=== PATIENT | male | born 1985 | race Caucasian/White ===

== ENCOUNTER 2020-02-27 17:00 | Outpatient (REF) | payer MEDICAID, SELFPAY | END 2020-02-27 17:01 | disposition home or self-care (01) | LOC: HO.LAB 17:00 | PROVIDERS: Visit Provider Internal Medicine | DX: Z20.828 Contact with and (suspected) exposure to other viral communicable diseases (principal) | CPT/HCPCS: C9803; U0003 ==

== ENCOUNTER 2020-04-23 15:47 | Outpatient (REF) | payer MEDICAID, SELFPAY | END 2020-04-23 15:48 | disposition home or self-care (01) | LOC: HO.LAB 15:47 | PROVIDERS: Visit Provider Internal Medicine | DX: Z20.822 Contact with and (suspected) exposure to COVID-19 (principal) | CPT/HCPCS: 36415; C9803; U0003; U0005 ==

== ENCOUNTER 2020-04-23 16:03 | Emergency (ER) | payer MEDICAID, SELFPAY ==
--- NOTE | ~2020-04-23 | XR_ITS ---
EXAMINATION: XR wrist RT min 3V, XR shoulder RT min 2V, XR elbow RT min 3V CLINICAL INFORMATION: Pain COMPARISON: None. TECHNIQUE: Right shoulder 4 views. Right elbow 3 views. Right wrist 4 views. FINDINGS: Right shoulder is intact. No fracture or dislocation. Visualized right lung and ribs are normal. No abnormal calcifications. The right elbow is normal. No fracture, dislocation, or joint effusion. The right wrist is normal. No fracture. No dislocation. Intercarpal joint spaces are maintained. Normal mineralization and alignment. No radiopaque foreign body. XR/XR shoulder RT min 2V IMPRESSION: No acute osseous abnormality of the right shoulder, elbow, or wrist.
--- NOTE | ~2020-04-23 | XR_ITS ---
EXAMINATION: XR wrist RT min 3V, XR shoulder RT min 2V, XR elbow RT min 3V CLINICAL INFORMATION: Pain COMPARISON: None. TECHNIQUE: Right shoulder 4 views. Right elbow 3 views. Right wrist 4 views. FINDINGS: Right shoulder is intact. No fracture or dislocation. Visualized right lung and ribs are normal. No abnormal calcifications. The right elbow is normal. No fracture, dislocation, or joint effusion. The right wrist is normal. No fracture. No dislocation. Intercarpal joint spaces are maintained. Normal mineralization and alignment. No radiopaque foreign body. XR/XR wrist RT min 3V IMPRESSION: No acute osseous abnormality of the right shoulder, elbow, or wrist.
--- NOTE | ~2020-04-23 | XR_ITS ---
EXAMINATION: XR KNEE, LEFT CLINICAL INFORMATION: Pain COMPARISON: None TECHNIQUE: Four views of the left knee. FINDINGS: No fracture or dislocation. There is suprapatellar soft tissue density. There is enthesopathy of the distal quadriceps tendon attachment. XR/XR knee LT 3V IMPRESSION: No acute osseous abnormality of the left knee. There is suprapatellar soft tissue density which may represent a small joint effusion or overlying soft tissues.
--- NOTE | ~2020-04-23 | XR_ITS ---
EXAMINATION: XR wrist RT min 3V, XR shoulder RT min 2V, XR elbow RT min 3V CLINICAL INFORMATION: Pain COMPARISON: None. TECHNIQUE: Right shoulder 4 views. Right elbow 3 views. Right wrist 4 views. FINDINGS: Right shoulder is intact. No fracture or dislocation. Visualized right lung and ribs are normal. No abnormal calcifications. The right elbow is normal. No fracture, dislocation, or joint effusion. The right wrist is normal. No fracture. No dislocation. Intercarpal joint spaces are maintained. Normal mineralization and alignment. No radiopaque foreign body. XR/XR elbow RT min 3V IMPRESSION: No acute osseous abnormality of the right shoulder, elbow, or wrist.
[2020-04-23 16:28] VITALS: BP 144/66; PULSE 79; RESP 16; TEMP 36.7; O2SAT 97; BMI 19.1
--- NOTE | 2020-04-23 19:27 | ED.EXTPRO ---
HPI - Extremity Problem General Chief complaint: Extremity Problem Stated complaint: Arm and leg pain Time Seen by Provider: 04/23/20 16:15 Source: patient Mode of arrival: ambulatory Limitations: no limitations History of Present Illness HPI Narrative: Patient comes to emergency room complaining of right-sided shoulder pain, elbow pain, and wrist pain. Patient states he feels a shooting pain going from the neck towards his arm. It has been going over a week. Patient denies any injury. Patient also requesting a note for work, he was sent from work to be tested for COVID-19 which he did, it is a work excuse for the next 3 days. Patient was told that he cannot return to work until his COVID results resolved. Related Data Allergies Allergy/AdvReac Type Severity Reaction Status Date / Time No Known Allergies Allergy Verified 04/23/20 16:33 Review of Systems Review of Systems: Constitutional : No Weight loss, No Fever, No Chills, No Night Sweats, No Fatigue, No Malaise ENT/Mouth : No Hearing loss, No Ear Pain, No Nasal Congestion, No Sinus Pain, No Hoarseness, No sore throat, No Rhinorrhea, No Swallowing Difficulty Eyes: No Eye Pain, No Swelling, No Redness, No Foreign Body, No Discharge, No Vision Changes Cardiovascular : No Chest Pain, No SOB, No Dyspnea on Exertion, No Orthopnea, No Edema, No Palpitations Respiratory : No Cough, No Sputum, No Wheezing, No Smoke Exposure, No Dyspnea Gastrointestinal : No Nausea, No Vomiting, No Diarrhea, No Constipation, No abdominal Pain, No Hematochezia, No Melena Genitourinary : no irregular bleeding, No Dysuria, No Urinary Frequency, No Hematuria, No Urinary Incontinence, No Urgency, No Flank Pain, No Urinary Flow Changes, No Hesitancy Musculoskeletal : Complaining of right-sided arm pain shoulder to wrist Skin : No Skin Lesions, No rash Neuro : No Weakness, No Numbness, No Paresthesias, No Loss of Consciousness, No Dizziness, No Headache Psych : No Anxiety/Panic, No Depression, No SI/HI/AH/VH, No Social Issues, Heme/Lymph: No Bruising, No Bleeding,No Lymphadenopathy Endocrine : No Polyuria, No Polydipsia, No Temperature Intolerance PMFSH Past Medical History Medical History No known health problems Social History Social History Alcohol intake: never Smoking Status: Current every day smoker Use of substances other than those prescribed or required for medical reasons: No Any prior treatment program specific to substance use: No Advance Directives: No Advance Directives Information Provided: Yes Physical Exam Vital Signs: Vital Signs: Last Vital Signs Temp 98.1 F 04/23/20 16:28 Pulse 79 04/23/20 16:28 Resp 16 04/23/20 16:28 BP 144/66 H 04/23/20 16:28 Pulse Ox 97 04/23/20 16:28 Body Mass Index 19.1 Appearance: Alert. Oriented X3. No acute distress. Eyes: Pupils equal, round and reactive to light. ENT: Pharynx normal. Neck: Normal inspection. Neck supple. No lymph nodes noted. No crepitus CVS: Normal heart rate and rhythm. Pulses normal. Normal S1 and S2 Respiratory: No respiratory distress. Breath sounds normal. No Wheezing. No rales Abdomen: Soft and nontender. No rigidity. No distention. good BS x4 Skin: Skin warm and dry. Normal skin color. Normal skin turgor. Extremities: No lower extremity edema. Patient is able to flex extend both arms, patient is able to abduct and adduct arms bilaterally. No joint swelling, no erythema Neuro: Oriented X 3. No motor deficit. No sensory deficit. Moving all extermities. No slurred speech. Course Course Course Narrative: I discussed with the patient that he may have cervical radiculopathy. His x-rays are negative. Patient struck to follow up with his primary care physician. MDM - Extremity (Nontraumatic) Imaging Data Right shoulder, elbow, wrist x-ray: Radiologist's impression: Right shoulder is intact. No fracture or dislocation. Visualized right lung and ribs are normal. No abnormal calcifications. The right elbow is normal. No fracture, dislocation, or joint effusion. The right wrist is normal. No fracture. No dislocation. Intercarpal joint spaces are maintained. Normal mineralization and alignment. No radiopaque foreign body. XR/XR wrist RT min 3V IMPRESSION: No acute osseous abnormality of the right shoulder, elbow, or wrist. Discharge Plan Discharge Clinical Impression: Arm pain, right, Cervical radiculopathy Patient Disposition: Home, Self-Care Instructions: Arm Pain (ED) Additional Instructions: You were tested for COVID-19, please do not return to work until you have your results. Please follow-up with your primary care physician tomorrow. If you have any worsening or new symptoms, please return to the emergency room or call 911 Stand Alone Forms: Work/School Release
== END 2020-04-23 19:41 | disposition home or self-care (01) ==
PROVIDERS: Emergency Provider Emergency Medicine; PCP Internal Medicine
DX: M79.601 Pain in right arm (principal); M54.12 Radiculopathy, cervical region; F17.200 Nicotine dependence, unspecified, uncomplicated
CPT/HCPCS: 73030; 73080; 73110; 73562; 99283; 99284

== ENCOUNTER 2020-05-01 14:18 | Emergency (ER) | payer MEDICAID, SELFPAY ==
--- NOTE | ~2020-05-01 | XR_ITS ---
EXAMINATION: XR CHEST CLINICAL INFORMATION: Cough. COMPARISON: None TECHNIQUE: Frontal view of the chest was obtained. FINDINGS: No significant abnormality is noted involving the heart, lungs, mediastinum, bony thorax or soft tissues. XR/XR chest 1V IMPRESSION: No acute cardiopulmonary process.
[2020-05-01 14:37] VITALS: BP 122/73; PULSE 80; RESP 18; TEMP 37.1; O2SAT 99; BMI 26.6
--- NOTE | 2020-05-01 15:36 | ED_ITS ---
HPI - General Adult General Chief complaint: General Medical Stated complaint: covid symptoms Time Seen by Provider: 05/01/20 15:12 Source: patient Mode of arrival: ambulatory History of Present Illness HPI narrative: 34-year-old male with no significant past medical history presenting to the ED complaining of dry cough, nasal congestion, headache, myalgias, and subjective fever x3 days. Admits to sick family member. Denies chest pain/shortness of breath, LE edema Onset (ago): day(s) Related Data Previous Rx's Medication Instructions Recorded albuterol sulfate 2 puff INHALATION Q4-6H PRN #6.7 g 05/01/20 Allergies Allergy/AdvReac Type Severity Reaction Status Date / Time No Known Allergies Allergy Verified 04/23/20 16:33 Review of Systems Review of Systems: Constitutional: No Weight loss, +Subj Fever, +Chills ENT/Mouth: No Ear Pain, + Nasal Congestion, No Sinus Pain, No Hoarseness, No sore throat, + Rhinorrhea, No Swallowing Difficulty Cardiovascular: No Chest Pain, No SOB Respiratory: +Cough, No Sputum, No Wheezing Gastrointestinal: No Nausea, No Vomiting, No Abdominal pain Musculoskeletal: No joint pain, + Myalgias, No Joint Swelling Skin: No Skin Lesions, No rash Yes all other systems are reviewed and are negative PMFSH Past Medical History Attestation statement: The following information was validated with the patient. Medical History No known health problems Social History Social History Alcohol intake: never Smoking Status: Current every day smoker Advance Directives: No Advance Directives Information Provided: No Physical Exam Vital Signs: Vital Signs: Last Vital Signs Temp 98.7 F 05/01/20 14:37 Pulse 80 05/01/20 14:37 Resp 18 05/01/20 14:37 BP 122/73 05/01/20 14:37 Pulse Ox 99 05/01/20 14:37 Body Mass Index 26.6 Const: General: cooperative and healthy appearing Orientation/consciousness: patient oriented x3 Limitations: no limitations HENMT: Head: Yes normal to inspection Ears: hearing grossly normal bilaterally General nose exam: Normal external nose present Face and sinus: Yes normal facial exam Eyes: General: appearance normal, both eyes and all related structures EOM: EOMs intact bilaterally Neck: Neck: Yes normal visual inspection Resp: Effort & Inspection: normal respiratory effort Auscultation: clear to auscultation bilaterally, no rales, no rhonchi and no wheezes Cardio: Rate: regular rate Heart sounds: S1 normal heart sound present and S2 normal heart sound present GI: Inspection: Yes normal to inspection Skin: Rashes: no rashes Wounds: no wounds Neuro: General: patient oriented x3 Gait exam (Neuro): Normal gait present Extrem: General: Yes normal to inspection and Yes no pedal edema Course Course Course Narrative: -CXR unremarkable. Patient is COVID-19 positive Medical Decision Making MDM Narrative Medical decision making narrative: 34-year-old male with no significant past medical history presenting to the ED complaining of dry cough, nasal congestion, headache, myalgias, and subjective fever x3 days. On exam VSS, NAD/well- appearing, nontoxic, lungs CTA. Concern for viral syndrome/COVID-19. Low concern for pneumonia/PE/ACS Plan: CXR, COVID-19 testing Lab Data Labs: Lab Results 05/01/20 Range/Units 14:51 Coronavirus (PCR) POSITIVE A (Negative) Influenza Type A (PCR) NEGATIVE (Negative) Influenza Type B (PCR) NEGATIVE (Negative) RSV RNA Qual (PCR) NEGATIVE (Negative) Discharge Plan Discharge Clinical Impression: COVID-19 Patient Disposition: Home, Self-Care Instructions: Viral Syndrome (ED) Additional Instructions: You have COVID-19. You need to self isolate for 10 days from today. Continue to take Tylenol Motrin at home for fever/body aches. Make sure your staying hydrated If you develop constant worsening chest pain, or shortness of breath return to the ED Use albuterol inhaler at home as needed for shortness of breath/wheezing CDC Guidelines for home isolation: - Stay away from others - WEAR A MASK if you are sick AND STAY HOME - Cover your mouth and nose with a tissue when you cough or sneeze. Dispose of tissues in a lined trash can and wash your hands immediately with soap and water for at least 20 seconds. If soap and water are not available, clean hands with alcohol-based hand service order expediter that contains at least 60% alcohol. - Clean your hands often with soap and water for at least 20 seconds - Avoid touching your eyes, nose and mouth with unwashed hands - Do not share dishes, drinking glasses, cups, eating utensils, towels, or bedding with other people in your home. After using these items, wash them thoroughly with soap and water or put in the supervisor specialty plant. - Clean high-touch surfaces in your isolation area ( sick room and bathroom) every day; let a caregiver clean and disinfect high-touch surfaces in other areas of the home. Clean the area or item with soap and water or another detergent if it is dirty. Then, use a household disinfectant. - Limit contact with pets and animals: If you must care for a pet, wash your hands before and after interacting with them) Prescriptions: New albuterol sulfate 90 mcg/actuation HFA aerosol inhaler 2 puff inhalation Q4-6H PRN (Reason: shortness of breath or wheezing) Qty: 6.7 RF: 0 Referrals: Physician,None [Primary Care Provider] - 2 days Stand Alone Forms: Work/School Release
[2020-05-01 15:39] LABS: Influenza A PCR NEGATIVE (Negative); Influenza B PCR NEGATIVE (Negative); Resp Syncy Virus RNA Qual PCR NEGATIVE (Negative); SARS COV2 PCR INHOUSE POSITIVE (Negative)
== END 2020-05-01 16:03 | disposition home or self-care (01) ==
PROVIDERS: Physician Assistant; Emergency Provider Emergency Medicine
DX: U07.1 COVID-19 (principal)
CPT/HCPCS: 0241U; 36415; 71045; 99282; 99283

== ENCOUNTER 2021-02-18 07:54 | Emergency (ER) | payer MEDICAID, SELFPAY ==
[2021-02-18 08:13] VITALS: BP 123/80; PULSE 78; RESP 18; O2SAT 98; BMI 19.5
--- NOTE | 2021-02-18 08:25 | ED_ITS ---
HPI - Nausea/Vomiting/Diarrhea General Chief complaint: Nausea/Vomiting/Diarrhea Stated complaint: Vomiting Time Seen by Provider: 02/18/21 08:16 Source: patient Mode of arrival: ambulatory Limitations: no limitations History of Present Illness MD elicited complaint: nausea and vomiting Pertinent past history: other (ate a burger out of vending machine vomited 30 min later) Onset (ago): hour(s) (several) Description of vomiting: food contents and watery Associated nausea: Yes Associated abdominal pain: No Location of pain: none Exacerbating factors: eating Relieving factors: none Context: possible food poisoning Associated symptoms: loss of appetite, malaise and nausea/vomiting Related Data Previous Rx's Medication Instructions Recorded albuterol sulfate 90 mcg/actuation 2 puff INHALATION Q4-6H PRN #6.7 g 05/01/20 aerosol inhaler ondansetron 4 mg disintegrating 4 mg PO Q8H PRN #20 tab 02/18/21 tablet Allergies Allergy/AdvReac Type Severity Reaction Status Date / Time No Known Allergies Allergy Verified 04/23/20 16:33 Review of Systems Review of Systems: Constitutional : No Weight loss, No Fever, No Chills ENT/Mouth : No sore throat, No Rhinorrhea Eyes: No Swelling, No Redness Cardiovascular : No Chest Pain, No SOB, NoEdema Respiratory : No Cough, No Sputum, No Wheezing Gastrointestinal : Positive Nausea, Positive Vomiting, no Diarrhea, no abdominal Pain, No Hematochezia, No Melena Genitourinary : No Dysuria, No Urinary Frequency, No Hematuria, No Urgency Musculoskeletal : No joint pain, No Myalgias, No Joint Swelling Skin : No Skin Lesions, No rash Neuro : No Weakness, No Numbness, No Dizziness, No Headache Psych : No Anxiety/Panic, No Depression Heme/Lymph: No Bruising, No Lymphadenopathy Endocrine : No Polyuria, No Polydipsia All other systems reviewed and are negative. Gastrointestinal: Gastrointestinal: Reports nausea PMFSH Past Medical History Attestation statement: The following information was validated with the patient. Medical History No known health problems Social History Social History Alcohol intake: never Patient Tobacco Use Status: Never used Tobacco Advance Directives: No Advance Directives Information Provided: No Physical Exam Vital Signs: Vital Signs: Last Vital Signs Pulse 78 02/18/21 08:13 Resp 18 02/18/21 08:13 BP 123/80 02/18/21 08:13 Pulse Ox 98 02/18/21 08:13 BMI result Body Mass Index 19.5 Appearance: Alert. Oriented X3. No acute distress. Eyes: Pupils equal, round and reactive to light. ENT: Pharynx normal. Neck: Normal inspection. Neck supple. CVS: Normal heart rate and rhythm. Pulses normal. Respiratory: No respiratory distress. Breath sounds normal. Abdomen: Soft and non-tender. Skin: Skin warm and dry. Normal skin color. Normal skin turgor. Extremities: No lower extremity edema. No calf ttp Neuro: Oriented X 3. No motor deficit. No sensory deficit. Course Course Course Narrative: feels better able to tolerate PO can be DC home MDM - Nausea/Vomiting/Diarrhea MDM Narrative Medical decision making narrative: 35 yo male no sig PMH here with c/o vomiting abruptly after eating a burger from vending machine while at work - he has no abdominal pain and exam is benign. At this time will need labs, hydration, nausea medication - dispo per results and findings suspect food toxicity Lab Data Result diagrams: 02/18/21 08:38 02/18/21 08:38 Labs: Lab Results 02/18/21 02/18/21 02/18/21 Range/Units 08:38 08:38 08:38 WBC 6.5 (4.8-10.8) X10*3/uL RBC 4.47 L (4.60-5.80) X10*6/uL Hgb 13.9 L (14.0-18.0) g/dl Hct 40.2 L (42.0-52.0) % MCV 89.9 (80.0-98.0) fL MCH 31.1 (27.0-33.0) pg MCHC 34.6 (31.0-36.0) g/dl RDW 12.5 (11.0-16.0) % Plt Count 218 (160-400) X10*3/uL MPV 10.6 (9.4-12.4) fL Immature Gran % (Auto) 0.6 H (0.0-0.4) % Neut % (Auto) 48.0 (45-73) % Lymph % (Auto) 34.2 (20-40) % [place] % (Auto) 13.6 H (2-11) % Eos % (Auto) 2.5 (0-4) % Baso % (Auto) 1.1 (0-2) % Lymph # (Auto) 2.2 (1.2-4.9) X10*3/uL [place] # (Auto) 0.9 (0.1-1.2) X10*3/uL Eos # (Auto) 0.2 (0.0-0.4) X10*3/uL Baso # (Auto) 0.1 (0.0-0.2) X10*3/uL Abs Immat Gran (auto) 0.04 H (0.00-0.03) X10*3/uL Absolute Neuts (auto) 3.1 (2.0-8.3) x10*3/uL Absolute Nucleated RBC 0.000 (0.0-0.012) X10*3/uL Nucleated RBC % (auto) 0.0 (0.0-0.2) /100WBC Sodium 139 (135-145) mmol/L Potassium 4.2 (3.3-5.1) mmol/L Chloride 106 (96-108) mmol/L Carbon Dioxide 27 (22-29) mmol/L Anion Gap 10 L (12-20) BUN 11 (9-16) mg/dL Creatinine 1.10 (0.5-1.4) mg/dL Estim Creat Clear Calc 85.7 Estimated GFR > 60 Random Glucose 100 (60-115) mg/dL Calcium 9.1 (8.4-10.2) mg/dL Magnesium 2.3 (1.6-2.6) mg/dL Total Bilirubin 0.4 (0.0-1.0) mg/dL Direct Bilirubin 0.2 (0.0-0.5) mg/dL AST 13 (5-37) U/L ALT 10 (0-40) U/L Alkaline Phosphatase 77 (39-117) U/L Total Protein 6.2 L (6.5-8.0) g/dL Albumin 4.0 (3.5-5.0) g/dL Lipase 49 (8-78) U/L COVID-19 ([facility]) Negative (Negative) COVID-19 Clin Com See Note Discharge Plan Discharge Clinical Impression: Food poisoning Patient Disposition: Home, Self-Care Instructions: Clear Liquid Diet (ED), Food Poisoning (ED) Additional Instructions: return to ED for any worsening symptoms or concerns clear liquids for today Prescriptions: New ondansetron 4 mg tablet,disintegrating 4 mg PO Q8H PRN (Reason: nausea and vomiting) Qty: 20 RF: 0 No Action albuterol sulfate 90 mcg/actuation HFA aerosol inhaler 2 puff inhalation Q4-6H PRN (Reason: shortness of breath or wheezing) Qty: 6.7 RF: 0 Referrals: Dafne Mi MD [Primary Care Provider] - 2 days (if not better) Stand Alone Forms: Work/School Release
[2021-02-18] MEDS: 0.9 % Sodium Chloride 1,000 ML 999 ML IV (08:40)
[2021-02-18] MEDS: Ketorolac Tromethamine 15 MG/ML VIAL 30 MG IVPUSH (08:45)
[2021-02-18] MEDS: ondansetron HCL 4 MG/2 ML VIAL IVPUSH (08:46)
[2021-02-18 08:50] LABS: MANUAL DIFF FLAG NO
[2021-02-18 08:54] LABS: Basophils Absolute Auto 0.1 X10*3/uL (0.0-0.2); Basophils Percent Auto 1.1 % (0-2); Eosinophils Absolute Auto 0.2 X10*3/uL (0.0-0.4); Eosinophils Percent Auto 2.5 % (0-4); Hematocrit 40.2 % (42.0-52.0); Hemoglobin 13.9 g/dl (14.0-18.0); Imm Gran Abs Auto 0.04 X10*3/uL (0.00-0.03); Imm Gran Pct Auto 0.6 % (0.0-0.4); Lymphocytes Absolute Auto 2.2 X10*3/uL (1.2-4.9); Lymphocytes Percent Auto 34.2 % (20-40); Mean Corpuscular HGB Conc 34.6 g/dl (31.0-36.0); Mean Corpuscular Hemoglobin 31.1 pg (27.0-33.0); Mean Corpuscular Volume 89.9 fL (80.0-98.0); Mean Platelet Volume 10.6 fL (9.4-12.4); Monocytes Absolute Auto 0.9 X10*3/uL (0.1-1.2); Monocytes Percent Auto 13.6 % (2-11); Neutrophils Absolute Auto 3.1 x10*3/uL (2.0-8.3); Platelet Count 218 X10*3/uL (160-400); Red Blood Count 4.47 X10*6/uL (4.60-5.80); Red Cell Distribution Width 12.5 % (11.0-16.0); White Blood Count 6.5 X10*3/uL (4.8-10.8)
[2021-02-18 09:12] LABS: Alanine Aminotransferase 10 U/L (0-40); Alkaline Phosphatase 77 U/L (39-117); Anion Gap 10 (12-20); Aspartate Amino Transferase 13 U/L (5-37); Bilirubin Direct 0.2 mg/dL (0.0-0.5); Bilirubin Total 0.4 mg/dL (0.0-1.0); Blood Urea Nitrogen 11 mg/dL (9-16); Calcium 9.1 mg/dL (8.4-10.2); Carbon Dioxide 27 mmol/L (22-29); Chloride 106 mmol/L (96-108); Creatinine Clr Calc Pharmacy 85.7; Estimated Glomerular Filt Rate > 60; Glucose Random 100 mg/dL (60-115); Lipase 49 U/L (8-78); Magnesium 2.3 mg/dL (1.6-2.6); Potassium 4.2 mmol/L (3.3-5.1); Sodium 139 mmol/L (135-145); Total Protein 6.2 g/dL (6.5-8.0)
[2021-02-18 09:15] LABS: COVID-19 Test Negative (Negative); IDNOW Serial# 9DD0AD1C
== END 2021-02-18 10:44 | disposition home or self-care (01) ==
PROVIDERS: Emergency Provider Emergency Medicine; PCP Internal Medicine
DX: A05.9 Bacterial foodborne intoxication, unspecified (principal); Z20.822 Contact with and (suspected) exposure to COVID-19
CPT/HCPCS: 36415; 80048; 80076; 83690; 83735; 85025; 87635; 96361; 96374; 96375; 99284; J1885; J2405

== ENCOUNTER 2021-09-04 02:17 | Emergency (ER) | payer MEDICAID, SELFPAY ==
--- NOTE | ~2021-09-04 | XR_ITS ---
EXAMINATION: XR FOREARM, RIGHT CLINICAL INFORMATION: Pain. COMPARISON: Right wrist and right elbow radiographs 04/23/2020. TECHNIQUE: AP and lateral views of the right forearm were obtained. FINDINGS: The radial head appears intact. No fractures identified. Normal bone mineralization. No suspicious osseous lesions. Soft tissue prominence is present along the volar aspect of the middle segment of the right forearm. No soft tissue emphysematous changes. XR/XR forearm RT 2V IMPRESSION: *Focal soft tissue prominence along the volar aspect of the right forearm which may represent acute inflammatory changes. No fractures. No subcutaneous emphysema.
[2021-09-04 02:20] VITALS: BP 125/80; PULSE 97; RESP 16; TEMP 36.8; O2SAT 98
--- NOTE | 2021-09-04 02:55 | ED_ITS ---
HPI - Skin/Abscess/Foreign Bdy General Chief complaint: Skin/Abscess/Foreign Body Stated complaint: R arm inj ; broke window, glass in arm ? Time Seen by Provider: 09/04/21 02:51 Source: patient Mode of arrival: ambulatory Limitations: no limitations History of Present Illness HPI narrative: Patient comes emergency room complaining of an abscess in his right forearm. Five days ago, patient punched a car window, had a laceration, patient has been taking care of it at home. However, the arm developed an abscess, pain getting worse, no fever. Patient does not have any other injury. Patient denies IV drug use Related Data Previous Rx's Medication Instructions Recorded albuterol sulfate 90 mcg/actuation 2 puff inhalation Q4-6H PRN 05/01/20 aerosol inhaler shortness of breath or wheezing #6.7 grams ondansetron 4 mg disintegrating 4 mg PO Q8H PRN nausea and 02/18/21 tablet vomiting #20 tabs cephalexin 250 mg capsule 250 mg PO BID #14 caps 09/04/21 doxycycline hyclate 100 mg tablet 100 mg PO BID #14 tabs 09/04/21 tramadol 50 mg tablet 50 mg PO Q8H PRN pain #7 tabs 09/04/21 Allergies Allergy/AdvReac Type Severity Reaction Status Date / Time No Known Allergies Allergy Verified 04/23/20 16:33 Review of Systems Review of Systems: Constitutional : No Weight loss, No Fever, No Chills, No Night Sweats, No Fatigue, No Malaise ENT/Mouth : No Hearing loss, No Ear Pain, No Nasal Congestion, No Sinus Pain, No Hoarseness, No sore throat, No Rhinorrhea, No Swallowing Difficulty Eyes: No Eye Pain, No Swelling, No Redness, No Foreign Body, No Discharge, No Vision Changes Cardiovascular : No Chest Pain, No SOB, No Dyspnea on Exertion, No Orthopnea, No Edema, No Palpitations Respiratory : No Cough, No Sputum, No Wheezing, No Smoke Exposure, No Dyspnea Gastrointestinal : No Nausea, No Vomiting, No Diarrhea, No Constipation, No abdominal Pain, No Hematochezia, No Melena Genitourinary : no irregular bleeding, No Dysuria, No Urinary Frequency, No Hematuria, No Urinary Incontinence, No Urgency, No Flank Pain, No Urinary Flow Changes, No Hesitancy Musculoskeletal : No joint pain, No Myalgias, No Joint Swelling Skin : abscess in the right forearm Neuro : No Weakness, No Numbness, No Paresthesias, No Loss of Consciousness, No Dizziness, No Headache Psych : No Anxiety/Panic, No Depression, No SI/HI/AH/VH, No Social Issues, Heme/Lymph: No Bruising, No Bleeding,No Lymphadenopathy Endocrine : No Polyuria, No Polydipsia, No Temperature Intolerance [facility] Past Medical History Medical History No known health problems Social History Social History Alcohol intake: never Patient Tobacco Use Status: Never used Tobacco Advance Directives: No Advance Directives Information Provided: Yes Physical Exam Vital Signs: Vital Signs: Last Vital Signs Temp 98.2 F 09/04/21 02:20 Pulse 97 09/04/21 02:20 Resp 16 09/04/21 02:20 BP 125/80 09/04/21 02:20 Pulse Ox 98 09/04/21 02:20 O2 Del Method 09/04/21 02:20 BMI result Body Mass Index 20.0 Const: Other: Appearance: Alert. Oriented X3. No acute distress. Eyes: Pupils equal, round and reactive to light. ENT: Pharynx normal. Neck: Normal inspection. Neck supple. No lymph nodes noted. No crepitus CVS: Normal heart rate and rhythm. Pulses normal. Normal S1 and S2 Respiratory: No respiratory distress. Breath sounds normal. No Wheezing. No rales Abdomen: Soft and nontender. No rigidity. No distention. Skin: Skin warm and dry. Normal skin color. Normal skin turgor. Extremities: No lower extremity edema. patient has an abscess approximately 3 cm x 3 cm in the right forearm anterior aspect Neuro: Oriented X 3. No motor deficit. No sensory deficit. Moving all extre mities. No slurred speech. CN 2 through 12 grossly intact Psych: calm, cooperative, normal affect Course Course Course Narrative: incision and drainage was performed. Small amount of pus was extracted, patient has packing. Patient declined Tdap. Patient was given the 1st dose of antibiotic, Keflex and doxycycline. Also, patient received 1 dose of p.o. oxycodone MDM - Skin/Abscess/Foreign Bdy Imaging Data forearm x-ray: Radiologist's impression: INDINGS: The radial head appears intact. No fractures identified. Normal bone mineralization. No suspicious osseous lesions. Soft tissue prominence is present along the volar aspect of the middle segment of the right forearm. No soft tissue emphysematous changes. XR/XR forearm RT 2V IMPRESSION: *Focal soft tissue prominence along the volar aspect of the right forearm which may represent acute inflammatory changes. No fractures. No subcutaneous emphysema. Procedures Abscess I/D Site: upper extremity Side (if applicable): right Local Anesthetic: lidocaine 2% Amount of anesthesia used (mL): 10 Technique: incised with blade Amount of fluid expressed (mL): 1 Sent for culture/gram staining?: No Packing used?: iodoform Discharge Plan Discharge Clinical Impression: Abscess of skin or subcutaneous tissue Patient Disposition: Home, Self-Care Instructions: Abscess (ED) Additional Instructions: the packing needs to be removed in 24 hours. It may be done by your primary care physician or you can return to the emergency room. It is possible you may need repacking. Please follow-up with your primary care physician tomorrow. If you have any worsening or new symptoms, please return to the emergency room or call 911 Prescriptions: New doxycycline hyclate 100 mg tablet 100 mg PO BID Qty: 14 0RF cephalexin 250 mg capsule 250 mg PO BID Qty: 14 0RF tramadol 50 mg tablet 50 mg PO Q8H PRN (Reason: pain) Qty: 7 0RF No Action albuterol sulfate 90 mcg/actuation HFA aerosol inhaler 2 puff inhalation Q4-6H PRN (Reason: shortness of breath or wheezing) Qty: 6.7 0RF ondansetron 4 mg tablet,disintegrating 4 mg PO Q8H PRN (Reason: nausea and vomiting) Qty: 20 0RF Stand Alone Forms: Work/School Release
[2021-09-04] MEDS: oxyCODONE HCl Immed Release 5 MG TABLET PO (03:16)
[2021-09-04] MEDS: cephALEXin 250 MG CAPSULE PO (04:02)
[2021-09-04] MEDS: Lidocaine HCl 2%/Epi 1:100,000 20 ML VIAL INFILTRATI (04:02)
== END 2021-09-04 04:05 | disposition home or self-care (01) ==
PROVIDERS: Emergency Provider Emergency Medicine
DX: L02.413 Cutaneous abscess of right upper limb (principal); Z79.899 Other long term (current) drug therapy
CPT/HCPCS: 10060; 73090; 99284

== ENCOUNTER 2021-09-05 02:12 | Emergency (ER) | payer MEDICAID, SELFPAY ==
[2021-09-05 02:17] VITALS: BP 115/75; PULSE 99; RESP 18; TEMP 37; O2SAT 98; BMI 20.5
[2021-09-05 04:12] VITALS: BP 120/82; PULSE 88; RESP 20; O2SAT 100
--- NOTE | 2021-09-05 04:13 | ED_ITS ---
HPI - Skin/Abscess/Foreign Bdy General Chief complaint: Skin/Abscess/Foreign Body Stated complaint: wound check Time Seen by Provider: 09/05/21 04:08 Source: patient Mode of arrival: ambulatory Limitations: no limitations History of Present Illness HPI narrative: Patient comes to the emergency room for a wound check. Patient had an abscess drained yesterday in the right forearm. Today he comes for a wound check. Patient states that he has localized pain, no fever or chills, taking antibiotic. Patient requesting stronger pain medication, states tramadol is not working Related Data Previous Rx's Medication Instructions Recorded albuterol sulfate 90 mcg/actuation 2 puff inhalation Q4-6H PRN 05/01/20 aerosol inhaler shortness of breath or wheezing #6.7 grams ondansetron 4 mg disintegrating 4 mg PO Q8H PRN nausea and 02/18/21 tablet vomiting #20 tabs cephalexin 250 mg capsule 250 mg PO BID #14 caps 09/04/21 doxycycline hyclate 100 mg tablet 100 mg PO BID #14 tabs 09/04/21 tramadol 50 mg tablet 50 mg PO Q8H PRN pain #7 tabs 09/04/21 oxycodone 5 mg tablet 5 mg PO BID PRN pain #6 tabs 09/05/21 Allergies Allergy/AdvReac Type Severity Reaction Status Date / Time No Known Allergies Allergy Verified 04/23/20 16:33 Review of Systems Review of Systems: Constitutional : No Weight loss, No Fever, No Chills, No Night Sweats, No Fatigue, No Malaise ENT/Mouth : No Hearing loss, No Ear Pain, No Nasal Congestion, No Sinus Pain, No Hoarseness, No sore throat, No Rhinorrhea, No Swallowing Difficulty Eyes: No Eye Pain, No Swelling, No Redness, No Foreign Body, No Discharge, No Vision Changes Cardiovascular : No Chest Pain, No SOB, No Dyspnea on Exertion, No Orthopnea, No Edema, No Palpitations Respiratory : No Cough, No Sputum, No Wheezing, No Smoke Exposure, No Dyspnea Gastrointestinal : No Nausea, No Vomiting, No Diarrhea, No Constipation, No abdominal Pain, No Hematochezia, No Melena Genitourinary : no irregular bleeding, No Dysuria, No Urinary Frequency, No Hematuria, No Urinary Incontinence, No Urgency, No Flank Pain, No Urinary Flow Changes, No Hesitancy Musculoskeletal : No joint pain, No Myalgias, No Joint Swelling Skin : Complaining of pain in the right forearm at the incision site, no bleeding, no pus drainage Neuro : No Weakness, No Numbness, No Paresthesias, No Loss of Consciousness, No Dizziness, No Headache Psych : No Anxiety/Panic, No Depression, No SI/HI/AH/VH, No Social Issues, Heme/Lymph: No Bruising, No Bleeding,No Lymphadenopathy Endocrine : No Polyuria, No Polydipsia, No Temperature Intolerance [facility] Past Medical History Medical History No known health problems Social History Social History Alcohol intake: never Patient Tobacco Use Status: Never used Tobacco Advance Directives: No Physical Exam Vital Signs: Vital Signs: Last Vital Signs Temp 98.6 F 09/05/21 02:17 Pulse 88 09/05/21 04:12 Resp 20 09/05/21 04:12 BP 120/82 09/05/21 04:12 Pulse Ox 100 09/05/21 04:12 O2 Del Method 09/05/21 04:12 BMI result Body Mass Index 20.5 Const: Other: Appearance: Alert. Oriented X3. No acute distress. Eyes: Pupils equal, round and reactive to light. ENT: Pharynx normal. Neck: Normal inspection. Neck supple. No lymph nodes noted. No crepitus CVS: Normal heart rate and rhythm. Pulses normal. Normal S1 and S2 Respiratory: No respiratory distress. Breath sounds normal. No Wheezing. No rales Abdomen: Soft and nontender. No rigidity. No distention. Skin: Skin warm and dry. The packing was removed. A smaller string was inserted to keep the opening open. No pus was extracted. No blood. Extremities: No lower extremity edema. No Lacerations. No Rash Neuro: Oriented X 3. No motor deficit. No sensory deficit. Moving all extremities. No slurred speech. CN 2 through 12 grossly intact Psych: calm, cooperative, normal affect Course Course Course Narrative: Discussed with the patient that he needs a wound check in 24-48 hours. Medication changed to oxycodone Discharge Plan Discharge Clinical Impression: Wound check, abscess Patient Disposition: Home, Self-Care Instructions: Abscess Follow-up (ED) Additional Instructions: You need a wound check in 24-48 hours. Please follow-up with your primary care physician tomorrow. If you have any worsening or new symptoms, please return to the emergency room or call 911 Prescriptions: New oxycodone 5 mg tablet 5 mg PO BID PRN (Reason: pain) Qty: 6 0RF Rx Instructions: Partial Fill upon patient request. No Action albuterol sulfate 90 mcg/actuation HFA aerosol inhaler 2 puff inhalation Q4-6H PRN (Reason: shortness of breath or wheezing) Qty: 6.7 0RF ondansetron 4 mg tablet,disintegrating 4 mg PO Q8H PRN (Reason: nausea and vomiting) Qty: 20 0RF doxycycline hyclate 100 mg tablet 100 mg PO BID Qty: 14 0RF cephalexin 250 mg capsule 250 mg PO BID Qty: 14 0RF tramadol 50 mg tablet 50 mg PO Q8H PRN (Reason: pain) Qty: 7 0RF
[2021-09-05] MEDS: oxyCODONE HCl Immed Release 5 MG TABLET PO (04:16)
== END 2021-09-05 04:25 | disposition home or self-care (01) ==
PROVIDERS: Emergency Provider Emergency Medicine; PCP Internal Medicine
DX: Z48.00 Encounter for change or removal of nonsurgical wound dressing (principal); Z79.899 Other long term (current) drug therapy
CPT/HCPCS: 99283; 99284

== ENCOUNTER 2023-03-18 13:12 | Outpatient (REF) | payer MEDICAID, SELFPAY | END 2023-03-18 13:13 | disposition home or self-care (01) | LOC: HO.HHCL 13:12 | PROVIDERS: Visit Provider Emergency Medicine | DX: Z11.4 Encounter for screening for human immunodeficiency virus [HIV] (principal); F11.20 Opioid dependence, uncomplicated | CPT/HCPCS: 36415; 80076; 86803; 87389 ==

== ENCOUNTER 2024-01-24 13:52 | Outpatient (REF) | payer MEDICAID, SELFPAY ==
--- NOTE | ~2024-01-24 | XR_ITS ---
EXAMINATION: XR WRIST, RIGHT CLINICAL INFORMATION: History of fracture. Pain. COMPARISON: Radiographs 04/23/2020 TECHNIQUE: PA, lateral, and oblique views of the right wrist. FINDINGS: Fixation screws traverse the distal radius appear intact with no evidence of loosening or osteolysis. No residual fracture line is evident. There are secondary degenerative changes at the junction of the distal radius with the proximal scaphoid and the lunate. Remote, ununited fragment of the ulnar styloid. XR/XR wrist RT min 3V IMPRESSION: Healed distal radius fracture with no evidence of hardware complication. Secondary degenerative changes at the junction of the distal radius with the proximal scaphoid and the lunate. Electronically signed by: Kris Neumann MD 01/24/2024 04:22 PM [facility]
== END 2024-01-24 13:53 | disposition home or self-care (01) ==
LOC: HO.XRAY 13:52
PROVIDERS: PCP Nurse Practitioner Primary Care; Visit Provider Registered Nurse
DX: M25.531 Pain in right wrist (principal)
CPT/HCPCS: 73110

== ENCOUNTER 2024-09-26 13:12 | Emergency (ER) | payer MEDICAID, SELFPAY ==
--- NOTE | ~2024-09-26 | XR_ITS ---
EXAMINATION: XR CHEST CLINICAL INFORMATION: Chest pain COMPARISON: 05/01/2020. TECHNIQUE: 2 views of the chest were obtained. FINDINGS: The cardiac, hilar, and mediastinal contours are normal. The lungs are clear bilaterally. There is no pneumothorax or pleural effusion. There is no focal osseous or soft tissue abnormality. XR/XR chest 2V IMPRESSION: Normal chest. Electronically signed by: Leland Kerr MD 09/26/2024 04:08 PM EDT
[2024-09-26 13:24] VITALS: BP 118/70; PULSE 74; RESP 16; TEMP 36.3; O2SAT 99; BMI 28.4
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
--- NOTE | 2024-09-26 13:27 | ECG_ITS ---
Test Reason : L UPPER ABD PAIN Blood Pressure : */* mmHG Vent. Rate : 78 BPM Atrial Rate : 78 BPM P-R Int : 162 ms QRS Dur : 90 ms QT Int : 354 ms P-R-T Axes : 61 -8 23 degrees QTcB Int : 403 ms Normal sinus rhythm Normal ECG When compared with ECG of 29-Mar-2019 16:24, Questionable change in QRS axis Referred By: Lali Vargas Electronically Signed By: HERRERA VALDES
[2024-09-26 13:43] LABS: Hematocrit 44.3 % (42.0-52.0); Hemoglobin 15.9 g/dl (14.0-18.0); Imm Gran Abs Auto 0.02 X10*3/uL (0.00-0.03); Imm Gran Pct Auto 0.3 % (0.0-0.4); Lymphocytes Absolute Auto 2.0 X10*3/uL (1.2-4.9); MANUAL DIFF FLAG NO; Mean Corpuscular HGB Conc 35.9 g/dl (31.0-36.0); Mean Corpuscular Hemoglobin 29.4 pg (27.0-33.0); Mean Corpuscular Volume 82.0 fL (80.0-98.0); NRBC Abs Auto 0.000 X10*3/uL (0.0-0.012); NRBC Pct Auto 0.0 /100WBC (0.0-0.2); Platelet Count 166 X10*3/uL (160-400); Red Blood Count 5.40 X10*6/uL (4.60-5.80); White Blood Count 6.8 X10*3/uL (4.8-10.8)
[2024-09-26 14:00] LABS: Alanine Aminotransferase 101 U/L (0-40); Albumin Level 4.5 g/dL (3.5-5.0); Alkaline Phosphatase 82 U/L (39-117); Anion Gap 10 (12-20); Aspartate Amino Transferase 62 U/L (5-37); Blood Urea Nitrogen 15 mg/dL (9-16); Calcium 9.4 mg/dL (8.4-10.2); Carbon Dioxide 27 mmol/L (22-29); Chloride 107 mmol/L (96-108); Creatinine Clr Calc Pharmacy 115.1; Estimated Glomerular Filt Rate > 60; Lipase 12 U/L (8-78); Magnesium 2.0 mg/dL (1.6-2.6); Potassium 4.2 mmol/L (3.3-5.1); Sodium 140 mmol/L (135-145); Total Protein 7.2 g/dL (6.5-8.0)
[2024-09-26 14:11] LABS: Troponin-I High Sensitivity < 2.7 ng/L (<3.5-35.0)
--- OUTSIDE RECORDS SUMMARY | 2024-09-26 14:49 | XMS_ITS | Encounter Summary ---
Author Organization [employer] Address [address] [place] [address] [address] [place] [address] Care Team Providers Care Wind Technician Name Role Phone Chaya Pugh YASHIRA Primary Care Provider [phone] Reason for Visit * Reason Comments Med Refill Encounter Details Date Type Department Care Team ([facility] st Contact Info) Description 02/11/2023 Refill [facility] [address] [place] [address] Milind España MD [address] [place] [address] Uncomplicated opioid dependence (CMS/HCC) Social History Tobacco Use Types Packs/Day Years Used Date Smoking Tobacco: Never Smokeless Tobacco: Current Alcohol Use Standard Drinks/Week Comments Not Currently 0 (1 standard drink = 0.6 oz pur e alcohol) Depression Answer Date Recorded Patient Health Questionnaire-9 Score 10 12/28/2022 Patient Health Questionnaire-9 Score 10 12/28/2022 Last PHQ-9: Questionnaire Data Not on file 1 Housing Stability Answer Date Recorded What is your housing situation today? I have [place] 12/28/[address] you li ve. Do you have problems with any of the following? None of the above 12/28/2022 Food Insecurity Answer Date Recorded Within the past 12 months, y ou worried that your food would run out before you got money to buy more: Never True 12/28/2022 Within the past 12 months,th e food you bought just didn't last and you didn't have enough money to get more: Never True Transportation Answer Date Recorded In the past 12 months, has l ack of transportation kept you from medical appts, meetings, work or from getting things needed for daily living? No 12/28/2022 Utilities Answer Date Recorded In the past 12 months, has t he electric, gas, oil or water company threatened to shut off services in your home? No 12/28/2022 Depression Answer Date Recorded Patient Health Questionnaire-2 Score 2 12/28/2022 Sex and Gender Information Value Date Recorded Sex Assigned at Male 01/11/2022 10:38 AM EDT Legal Sex Male 10:38 AM EDT Gender Identity Male 01/11/2022 10:38 AM EDT Sexual Orientation Straight 01/11/2022 10 :38 AM EDT documented as of this encounter Plan of Treatment Upcoming Encounters Date Type Department Care Team (Late st Contact Info) Description 10/26/2024 11:30 AM EDT Clinical Support [facility] [address] [place] [address] Justyna Delaney, RN documented as of this encounter Visit Diagnoses Diagnosis Uncomplicated opioid dependence (CMS/HCC) documented in this encounter Additional Health Concerns Assessment Noted Time PHQ-9 Depression Total Score: 10 023 12:05 PM EDT documented as of this encounter Care Teams Wind Technician Relationship Specialty Start Date End Date Chaya Pugh ANP [address] [place] [id number] PCP - General Family Medicine 11/20/20 documented as of this encounter
[2024-09-26 16:52] VITALS: BP 118/70; PULSE 74; RESP 16; TEMP 36.3; O2SAT 99
== END 2024-09-26 17:00 | disposition home or self-care (01) ==
PROVIDERS: Physician Assistant Medical; Emergency Provider Emergency Medicine; PCP Nurse Practitioner Primary Care
DX: M94.0 Chondrocostal junction syndrome [Tietze] (principal); R07.81 Pleurodynia; F12.90 Cannabis use, unspecified, uncomplicated; R05.9 Cough, unspecified; R10.819 Abdominal tenderness, unspecified site; Z79.899 Other long term (current) drug therapy
CPT/HCPCS: 36415; 71046; 80053; 83690; 83735; 84484; 85025; 93005; 96372; 99284; 99285; J1885; J8540

== ENCOUNTER → 2024-09-26 13:27 | Outpatient (BNV) | payer MEDICAID, SELFPAY | PROVIDERS: Emergency Provider Emergency Medicine; PCP Nurse Practitioner Primary Care; Visit Provider Internal Medicine | DX: R10.12 Left upper quadrant pain (principal) | CPT/HCPCS: 93010 ==

== ENCOUNTER → 2024-09-26 15:52 | Outpatient (BNV) | payer MEDICAID, SELFPAY | PROVIDERS: Emergency Provider Emergency Medicine; PCP Nurse Practitioner Primary Care; Visit Provider Radiology Diagnostic Radiology | DX: R07.9 Chest pain, unspecified (principal) | CPT/HCPCS: 71046 ==

== ENCOUNTER 2025-01-14 13:12 | Outpatient (REF) | payer MEDICAID, SELFPAY ==
[2025-01-14 16:09] LABS: MANUAL DIFF FLAG NO
[2025-01-14 16:18] LABS: Hematocrit 44.1 % (42.0-52.0); Hemoglobin 14.8 g/dl (14.0-18.0); Imm Gran Abs Auto 0.02 X10*3/uL (0.00-0.03); Imm Gran Pct Auto 0.2 % (0.0-0.4); Lymphocytes Absolute Auto 2.2 X10*3/uL (1.2-4.9); Mean Corpuscular HGB Conc 33.6 g/dl (31.0-36.0); Mean Corpuscular Hemoglobin 28.8 pg (27.0-33.0); Mean Corpuscular Volume 85.8 fL (80.0-98.0); NRBC Abs Auto 0.000 X10*3/uL (0.0-0.012); NRBC Pct Auto 0.0 /100WBC (0.0-0.2); Platelet Count 192 X10*3/uL (160-400); Red Blood Count 5.14 X10*6/uL (4.60-5.80); White Blood Count 8.7 X10*3/uL (4.8-10.8)
[2025-01-14 16:47] LABS: Anion Gap 8 (12-20); Blood Urea Nitrogen 11 mg/dL (9-16); Calcium 9.2 mg/dL (8.4-10.2); Carbon Dioxide 30 mmol/L (22-29); Chloride 106 mmol/L (96-108); Cholesterol 157 mg/dL (<200); Estimated Glomerular Filt Rate > 60; HDL Cholesterol 35 mg/dL (>40); Potassium 4.2 mmol/L (3.3-5.1); Sodium 140 mmol/L (135-145); Triglycerides 163 mg/dL (<150)
[2025-01-14 17:51] LABS: Free T4 (Free Thyroxine) 1.10 ng/dL (0.71-1.85)
[2025-01-15 00:11] LABS: Alanine Aminotransferase 64 U/L (0-40); Albumin Level 4.3 g/dL (3.5-5.0); Alkaline Phosphatase 91 U/L (39-117); Aspartate Amino Transferase 47 U/L (5-37); Total Protein 6.9 g/dL (6.5-8.0)
[2025-01-15 06:51] LABS: HIV Num 1 0.05 S/CO (0.00-0.99); ~HepC Num1 0.06 S/CO (0.00-0.79); ~Hepatitis C Antibody Nonreactive (Nonreactive)
== END 2025-01-14 13:13 | disposition home or self-care (01) ==
LOC: HO.HHCL 13:12
PROVIDERS: Emergency Medicine; PCP Nurse Practitioner Primary Care; Visit Provider Nurse Practitioner Primary Care
DX: Z00.00 Encounter for general adult medical examination without abnormal findings (principal); Z11.59 Encounter for screening for other viral diseases; Z11.4 Encounter for screening for human immunodeficiency virus [HIV]; F11.20 Opioid dependence, uncomplicated; L85.3 Xerosis cutis
CPT/HCPCS: 36415; 80048; 80061; 80076; 84439; 84443; 85025; 86803; 87389

== ENCOUNTER 2025-01-25 19:22 | Emergency (ER) | payer MEDICAID, SELFPAY ==
[2025-01-25] VITALS (7 sets, daily range): BP systolic 92–111; BP diastolic 48–68; PULSE 57–76; RESP 16–18; TEMP 36.6–36.7; O2SAT 97–100; BMI 20.1
--- NOTE | 2025-01-25 19:38 | ED.GENADULT ---
HPI - General Adult General Chief complaint: General Medical Stated complaint: ? Vertigo, vomiting, Time Seen by Provider: 01/25/25 21:22 Source: patient Mode of arrival: ambulatory Limitations: no limitations History of Present Illness ED Provider: Dr. Elizabeth Arauz HPI narrative: patient comes to the emergency room complaining of 2 days of nausea vomiting diarrhea and now reports dizziness / lightheadedness with standing. Patient denies any fever chills, denies URI symptoms, no abdominal pain, no UTI symptoms. Patient denies chest pain or shortness of breath. Denies any syncopal episodes Related Data Previous Rx's ?Medication ?Instructions ?Recorded albuterol sulfate 90 mcg/actuation 2 puff inhalation Q4-6H PRN 05/01/20 aerosol inhaler shortness of breath or wheezing #6.7 grams ondansetron 4 mg disintegrating 4 mg PO Q8H PRN nausea and 02/18/21 tablet vomiting #20 tabs cephalexin 250 mg capsule 250 mg PO BID #14 caps 09/04/21 doxycycline hyclate 100 mg tablet 100 mg PO BID #14 tabs 09/04/21 tramadol 50 mg tablet 50 mg PO Q8H PRN pain #7 tabs 09/04/21 oxycodone 5 mg tablet 5 mg PO BID PRN pain #6 tabs 09/05/21 Allergies Allergy/AdvReac Type Severity Reaction Status Date / Time No Known Allergies Allergy Verified 01/25/25 19:41 Review of Systems Review of Systems: Constitutional : No Weight loss, No Fever, No Chills, No Night Sweats, No Fatigue, No Malaise ENT/Mouth : No Hearing loss, No Ear Pain, No Nasal Congestion, No Sinus Pain, No Hoarseness, No sore throat, No Rhinorrhea, No Swallowing Difficulty Eyes: No Eye Pain, No Swelling, No Redness, No Foreign Body, No Discharge, No Vision Changes Cardiovascular : No Chest Pain, No SOB, No Dyspnea on Exertion, No Orthopnea, No Edema, No Palpitations Respiratory : No Cough, No Sputum, No Wheezing, No Smoke Exposure, No Dyspnea Gastrointestinal : complaining of 3 days of nausea vomiting and diarrhea, No Constipation, No abdominal Pain, No Hematochezia, No Melena Genitourinary : no irregular bleeding, No Dysuria, No Urinary Frequency, No Hematuria, No Urinary Incontinence, No Urgency, No Flank Pain, No Urinary Flow Changes, No Hesitancy Musculoskeletal : No joint pain, No Myalgias, No Joint Swelling Skin : No Skin Lesions, No rash Neuro : No Weakness, No Numbness, No Paresthesias, No Loss of Consciousness, complaining of dizziness with standing up, denies syncopal episode Psych : No Anxiety/Panic, No Depression, No SI/HI/AH/VH, No Social Issues, Heme/Lymph: No Bruising, No Bleeding,No Lymphadenopathy Endocrine : No Polyuria, No Polydipsia, No Temperature Intolerance [facility] Past Medical History Medical History No known health problems Social History Social History (System 12/24/21 @ 14:52 by Chasity Grubbs) Alcohol intake: never Patient Tobacco Use Status: Never used Tobacco Smoked in Last 30 Days: Yes Substance Use Type: Marijuana Substance Use Frequency: Occasionally Advance Directives: No Advance Directives Information Provided: No Physical Exam ED Exam Exam: Appearance: Alert. Oriented X3. No acute distress. Eyes: Pupils equal, round and reactive to light. ENT: Pharynx normal. Neck: Normal inspection. Neck supple. No lymph nodes noted. No crepitus CVS: Normal heart rate and rhythm. Pulses normal. Normal S1 and S2 Respiratory: No respiratory distress. Breath sounds normal. No Wheezing. No rales Abdomen: Soft and nontender. No rigidity. No distention. Skin: Skin warm and dry. Normal skin color. Normal skin turgor. Extremities: No lower extremity edema. No Lacerations. No Rash Neuro: Oriented X 3. No motor deficit. No sensory deficit. Moving all extremities. No slurred speech. CN 2 through 12 grossly intact Psych: calm, cooperative, normal affect Vital Signs: Vital Signs - 24 hr 01/25/25 19:37 01/25/25 21:06 01/25/25 21:08 Temperature 98.1 F 97.8 F Pulse Rate 73 57 Respiratory Rate 18 16 Blood Pressure 108/60 95/48 L 98/54 L Pulse Oximetry 97 99 Oxygen Delivery Method Room Air Room Air 01/25/25 21:52 01/25/25 21:55 01/25/25 21:57 Temperature Pulse Rate 66 76 69 Respiratory Rate Blood Pressure 92/60 98/55 L 105/64 Pulse Oximetry Oxygen Delivery Method 01/25/25 22:00 01/26/25 00:34 01/26/25 00:35 Temperature 97.8 F Pulse Rate 58 55 59 Respiratory Rate 16 Blood Pressure 111/68 97/55 L 102/59 L Pulse Oximetry 100 Oxygen Delivery Method Room Air 01/26/25 00:36 01/26/25 03:36 01/26/25 03:39 Temperature Pulse Rate 65 60 60 Respiratory Rate Blood Pressure 86/59 L 92/59 L 109/68 Pulse Oximetry Oxygen Delivery Method 01/26/25 03:42 Temperature Pulse Rate 56 Respiratory Rate Blood Pressure 106/73 Pulse Oximetry Oxygen Delivery Method BMI result Body Mass Index 20.1 Course Course Course Narrative: This is a rapid medical exam performed by Sulema Nguyen NP: Additional HPI, ROS, PE not included below will be deferred to primary provider. Patient is a 39y/o M presenting to the ED with 3 days of feeling lightheaded, worse in the morning and after going up stairs. Had GI sxs 2 days ago, no vomiting today. Plan: EKG, viral swabs, labs Medications Administered Discontinued Medications Generic Name Dose Route Start Last Admin Trade Name Freq PRN Reason Stop Dose Admin Sodium Chloride 2,000 mls @ 999 mls/hr 01/25/25 21:59 01/25/25 23:40 Ns IVCONT 01/25/25 23:59 Infused .Q2H1M ONE Infusion Lactated Ringer's 1,000 mls @ 999 mls/hr 01/26/25 00:45 01/26/25 03:32 Lr IV 01/26/25 02:45 Infused .Q1H1M ANTONELLA Infusion Ketorolac Tromethamine 30 mg 01/26/25 01:23 01/26/25 01:48 Ketorolac Tromethamine 30 Mg/Ml Vial IVPUSH 01/26/25 01:24 30 mg ONCE ONE Administration Loperamide HCl 2 mg 01/25/25 22:00 01/25/25 22:26 Loperamide Hcl 2 Mg Capsule PO 01/25/25 22:01 2 mg ONCE ONE Administration Metoclopramide HCl 10 mg 01/26/25 01:23 01/26/25 01:48 Metoclopramide Hcl 10 Mg/2 Ml Vial IVPUSH 01/26/25 01:24 10 mg ONCE ONE Administration Ondansetron HCl 4 mg 01/25/25 22:00 01/25/25 22:26 Ondansetron Hcl 4 Mg/2 Ml Vial IVPUSH 01/25/25 22:01 4 mg ONCE ONE Administration Medical Decision Making Medical Decision Making [facility] Narrative: my interpretation of EKG: Sinus bradycardia, heart rate 57, occasional PVCs, no ST segment depression or elevation, nonspecific T-wave abnormalities along with PVCs, QTC 385 my interpretation of labs: No significant abnormality in patient's hematology and chemistry, serology negative for influenza COVID and RSV, Mg wnl urinalysis has a small amount of leukocyte esterase and WBCs, no bacteria. Patient has a UTI symptoms urine toxicology positive for opiates, methadone, fentanyl, cocaine, marijuana orthostatic vitals negative. However, patient did report dizziness with standing patient's orthostatic hypotension likely secondary to a combination of a viral syndrome, dehydration due to nausea vomiting, and polysubstance abuse including narcotics patient receiving IV fluids, loperamide and Zofran after 2 L of normal saline, patient's orthostatics were checked, this time when he stood up, the patient had a significant drop in blood pressure and was dizzy. Patient was given an additional 2 L of lactated Ringer's. After a total of 4 L, patient is completely awake alert, feels well, orthostatics negative. Differential Diagnosis Differential Diagnoses: The differential diagnosis associated with the presentation includes ( orthostatic hypotension, dehydration, viral syndrome, gastroenteritis) Admission/Observation Consideration of admission/observation: Escalation of care including admission/observation considered ( given patient's signs/ symptoms and presentation, observation was considered) Lab Data [facility] Lab Attestation statement: I reviewed the patient's lab results. 01/25/25 19:51 01/25/25 19:51 Labs: Lab Results 01/25/25 01/26/25 Range/Units 19:51 00:31 WBC 8.5 (4.8-10.8) X10*3/uL RBC 4.27 L (4.60-5.80) X10*6/uL Hgb 12.8 L (14.0-18.0) g/dl Hct 36.4 L (42.0-52.0) % MCV 85.2 (80.0-98.0) fL MCH 30.0 (27.0-33.0) pg MCHC 35.2 (31.0-36.0) g/dl RDW 12.1 (11.0-16.0) % Plt Count 180 (160-400) X10*3/uL MPV 10.5 (9.4-12.4) fL Immature Gran % (Auto) 0.2 (0.0-0.4) % Neut % (Auto) 62.4 (45-73) % Lymph % (Auto) 27.2 (20-40) % [place] % (Auto) 8.5 (2-11) % Eos % (Auto) 0.6 (0-4) % Baso % (Auto) 1.1 (0-2) % Lymph # (Auto) 2.3 (1.2-4.9) X10*3/uL [place] # (Auto) 0.7 (0.1-1.2) X10*3/uL Eos # (Auto) 0.1 (0.0-0.4) X10*3/uL Baso # (Auto) 0.1 (0.0-0.2) X10*3/uL Abs Immat Gran (auto) 0.02 (0.00-0.03) X10*3/uL Absolute Neuts (auto) 5.3 (2.0-8.3) x10*3/uL Absolute Nucleated RBC 0.000 (0.0-0.012) X10*3/uL Nucleated RBC % (auto) 0.0 (0.0-0.2) /100WBC Sodium 138 (135-145) mmol/L Potassium 3.8 (3.3-5.1) mmol/L Chloride 106 (96-108) mmol/L Carbon Dioxide 26 (22-29) mmol/L Anion Gap 10 L (12-20) BUN 11 (9-16) mg/dL Creatinine 0.86 (0.5-1.4) mg/dL Estim Creat Clear Calc 105.6 Estimated GFR > 60 Random Glucose 121 H (60-115) mg/dL Calcium 9.1 (8.4-10.2) mg/dL Magnesium 2.0 (1.6-2.6) mg/dL Total Bilirubin 0.7 (0.0-1.0) mg/dL AST 23 (5-37) U/L ALT 21 (0-40) U/L Alkaline Phosphatase 72 (39-117) U/L Troponin I High Sens < 2.7 (<3.5-35.0) ng/L Total Protein 6.5 (6.5-8.0) g/dL Albumin 4.5 (3.5-5.0) g/dL Urine Color Yellow Urine Appearance Clear Urine pH 6.0 (5.0-9.0) Ur Specific [place] 1.015 (1.005-1.025) Urine Protein Negative (Neg-Trace) mg/dL Urine Glucose (UA) Negative (Negative) mg/dL Urine Ketones Negative (Negative) mg/dL Urine Blood Negative (Negative) Urine Nitrite Negative (Negative) Ur Leukocyte Esterase Small (1+) H (Negative) Urine RBC 0-2 (0-2) /HPF Urine WBC 11-20 H (0-5) /HPF Ur Squamous Epith Cells 0-2 (0-2) /HPF Urine Bacteria None Seen (None Seen) Hyaline Casts 0-2 (0-2) /LPF Urine Opiates Screen POSITIVE H (Not Detect) Ur Buprenorphine Scrn Not Detected (Not Detect) ng/mL Ur Oxycodone Screen Not Detected (Not Detect) ng/mL Urine Methadone Screen Positive H (Not Detect) ng/mL Urine Fentanyl Screen POSITIVE H (Not Detect) Ur Barbiturates Screen Not Detected (Not Detect) Ur Phencyclidine Scrn Not Detected (Not Detect) Ur Amphetamines Screen Not Detected (Not Detect) U Benzodiazepines Scrn Not Detected (Not Detect) Urine Cocaine Screen POSITIVE H (Not Detect) U Marijuana (THC) Screen POSITIVE H (Not Detect) Influenza Type A (PCR) NEGATIVE (Negative) Influenza Type B (PCR) NEGATIVE (Negative) RSV RNA Qual (PCR) NEGATIVE (Negative) SARS-CoV-2 RNA (RT-PCR) NEGATIVE (Negative) Critical Care Time Critical Care Time Critical Care Time: Yes Total Critical Care Time: 60 Attestation: I have personally provided critical care time. Time includes review of lab data, radiology results, discussion with consultants, and monitoring for potential decompensation. Intervention performed as documented. Discharge Plan Discharge Clinical Impression: Nausea vomiting and diarrhea, Dehydration, Orthostatic hypotension, Polysubstance abuse Patient Disposition: Home, Self-Care Instructions: Dehydration (ED), Acute Diarrhea (ED), Hypotension (ED), Polysubstance Use Disorder (ED) Additional Instructions: Please follow-up with your primary care physician tomorrow. If you have any worsening or new symptoms, please return to the emergency room or call 911 Opiate use disorder You were seen in our Emergency Department today for treatment of opiate use disorder. You may have been dosed with medication for opiate use disorder (MOUD) in the form of suboxone or methadone. You may experience feeling some withdrawal symptoms and this is normal. The? dose in the Emergency Department is a starting dose and meant to be titrated up once you follow up with a clinic. Please do not feel discouraged, it is a process. The nurse has reviewed with you where to follow up and what information to bring with you, to continue treatment. You also may have been given naloxone (narcan) to take home with you. This medication is used to potentially treat opiate overdose. If you decide you want to stop or cut down on how much you?re using, you can call or walk into our outpatient Addiction Treatment office: [facility] (M-F 9am-5p) [address] [place] [address], [address] [phone] You may have been provided with safer injection?items, please take time to take care of YOU and your health. Use new supplies whenever possible to lessen the chances of infections and other illnesses.? ?If you need more supplies, please go [facility],? [address] [place] [address] OR you can call or text to coordinate delivery of safer supplies. You were also provided a list of several treatment providers in the area.? If you experience any worsening symptoms you cannot control please return to the ED or call 911. Please follow up at your next appointment. Things to look out for are fevers, chest pain, shortness of breath, severe pain, dizziness, fainting or any other concerns. Prescriptions: No Action albuterol sulfate 90 mcg/actuation HFA aerosol inhaler 2 puff inhalation Q4-6H PRN (Reason: shortness of breath or wheezing) Qty: 6.7 0RF ondansetron 4 mg tablet,disintegrating 4 mg PO Q8H PRN (Reason: nausea and vomiting) Qty: 20 0RF doxycycline hyclate 100 mg tablet 100 mg PO BID Qty: 14 0RF cephalexin 250 mg capsule 250 mg PO BID Qty: 14 0RF tramadol 50 mg tablet 50 mg PO Q8H PRN (Reason: pain) Qty: 7 0RF oxycodone 5 mg tablet 5 mg PO BID PRN (Reason: pain) Qty: 6 0RF Rx Instructions: Partial Fill upon patient request. Print Language: [place]
--- NOTE | 2025-01-25 19:39 | ECG_ITS ---
Test Reason : LIGHTHEADED Blood Pressure : */* mmHG Vent. Rate : 57 BPM Atrial Rate : 57 BPM P-R Int : 130 ms QRS Dur : 94 ms QT Int : 396 ms P-R-T Axes : 43 57 60 degrees QTcB Int : 385 ms Sinus bradycardia with occasional Premature ventricular complexes Otherwise normal ECG When compared with ECG of 26-Sep-2024 13:30, Premature ventricular complexes are now Present Questionable change in QRS axis Referred By: Linda Nguyen Electronically Signed By: YAMILA PABLO MD
[2025-01-25 19:55] LABS: MANUAL DIFF FLAG NO
[2025-01-25 20:00] LABS: Hematocrit 36.4 % (42.0-52.0); Hemoglobin 12.8 g/dl (14.0-18.0); Imm Gran Abs Auto 0.02 X10*3/uL (0.00-0.03); Imm Gran Pct Auto 0.2 % (0.0-0.4); Lymphocytes Absolute Auto 2.3 X10*3/uL (1.2-4.9); Mean Corpuscular HGB Conc 35.2 g/dl (31.0-36.0); Mean Corpuscular Hemoglobin 30.0 pg (27.0-33.0); Mean Corpuscular Volume 85.2 fL (80.0-98.0); NRBC Abs Auto 0.000 X10*3/uL (0.0-0.012); NRBC Pct Auto 0.0 /100WBC (0.0-0.2); Platelet Count 180 X10*3/uL (160-400); Red Blood Count 4.27 X10*6/uL (4.60-5.80); White Blood Count 8.5 X10*3/uL (4.8-10.8)
[2025-01-25 20:12] LABS: Alanine Aminotransferase 21 U/L (0-40); Albumin Level 4.5 g/dL (3.5-5.0); Alkaline Phosphatase 72 U/L (39-117); Anion Gap 10 (12-20); Aspartate Amino Transferase 23 U/L (5-37); Blood Urea Nitrogen 11 mg/dL (9-16); Calcium 9.1 mg/dL (8.4-10.2); Carbon Dioxide 26 mmol/L (22-29); Chloride 106 mmol/L (96-108); Creatinine Clr Calc Pharmacy 105.6; Estimated Glomerular Filt Rate > 60; Potassium 3.8 mmol/L (3.3-5.1); Sodium 138 mmol/L (135-145); Total Protein 6.5 g/dL (6.5-8.0)
[2025-01-25 20:37] LABS: Resp Syncy Virus RNA Qual PCR NEGATIVE (Negative); SARS COV2 PCR INHOUSE NEGATIVE (Negative)
--- NOTE | 2025-01-25 21:23 | PC.NURSE ---
Pt states for the past 3 days hes been waking up to lightheadedness and dizziness. Pt also endorses h/a and intermittent nausea. Pt denies any recent illness/ear pain. Pt states he took otc advil and apap without relief.
--- NOTE | 2025-01-25 21:42 | PC.NURSE ---
Attempted to obtain labs, pt continues to yell, spit, and uncooperative w/ care despite 4 pt restraints.
[2025-01-25 21:55] LABS: Troponin-I High Sensitivity < 2.7 ng/L (<3.5-35.0)
[2025-01-25 22:31] LABS: Magnesium 2.0 mg/dL (1.6-2.6)
[2025-01-26] VITALS (8 sets, daily range): BP systolic 86–109; BP diastolic 55–73; PULSE 55–65; RESP 16; TEMP 37; O2SAT 97
[2025-01-26 00:50] LABS: Appearance Urine Clear; Glucose Urine UA Negative (Negative); PH 6.0 (5.0-9.0); Specific Gravity - Urine 1.015 (1.005-1.025); UMIC TRIGGER UACC YES
[2025-01-26 00:55] LABS: UACC Culture Trigger YES
[2025-01-26 00:59] LABS: Cannabinoid Screen Urine POSITIVE (Not Detect)
[2025-01-26] MEDS: Lactated Ringers 1,000 ML 999 ML IV ×2 (01:20→02:21)
--- NOTE | 2025-01-26 01:59 | PC.NURSE ---
pt ambulates independently, 20g L forearm. LR infusing at this time for positive orthos. pt medicated per MAR for migraine
== END 2025-01-26 03:58 | disposition home or self-care (01) ==
PROVIDERS: Registered Nurse Emergency; Emergency Provider Emergency Medicine; PCP Internal Medicine
DX: E86.0 Dehydration (principal); R11.2 Nausea with vomiting, unspecified; R42 Dizziness and giddiness; R19.7 Diarrhea, unspecified; F19.10 Other psychoactive substance abuse, uncomplicated; I95.1 Orthostatic hypotension
CPT/HCPCS: 80053; 80307; 81001; 83735; 84484; 85025; 87086; 87637; 93005; 96361; 96374; 96375; 99285; J1885; J2405; J2765; J7120

== ENCOUNTER → 2025-01-25 19:39 | Outpatient (BNV) | payer MEDICAID, SELFPAY | PROVIDERS: Emergency Provider Emergency Medicine; PCP Internal Medicine; Visit Provider Internal Medicine Cardiovascular Disease | DX: I49.3 Ventricular premature depolarization (principal); R00.1 Bradycardia, unspecified | CPT/HCPCS: 93010 ==